=== PATIENT | female | born 1990 | race Caucasian/White ===

== ENCOUNTER 2016-09-15 18:49 | Emergency (ER) | payer OTHER ==
[~2016-09-15] VITALS: Ht 175.3 cm; Wt 162.7 kg
[~2016-09-15 18:49] MED LIST: BENADRYL25 MG PO; CHROMAGEN,1 CAPSULE PO; CLEOCIN150 MG PO; CLEOCIN300 MG PO; CLINDAMYCIN HC300 MG PO; DIFLUCAN150 MG PO; ENDOCET 5-3251 EACH PO; FLINTSTONES CO1 EAC1 PO; IBUPROFEN800 MG PO; INDOCIN25 MG PO; KEFLEX500 MG PO; LIDOCAINE20 MG/1 M5 PO; MACROBID100 MG PO; MOTRIN800 MG PO; Motrin PO; NOHOMEMEDS; OXYCODONE HCL5 MG PO; POLYTRIM EYE DR10 ML BOTH EYES; PREDNISONE20 MG PO; Percocet 5/325,Endoc PO; TYLENOL REGULA325 MG PO; TYLENOL WITH C1 EACH PO; ULTRACET1 TABLET PO; VITRON-C TABLE1 EACH PO; ZOFRAN ODT4 MG PO
[2016-09-15 19:44] LABS: HEMATOCRIT 35.8 % (36.0-46.0); MCH 28.6 PG (29.0-34.0); MCHC 32.7 G/DL (30.0-36.0); MCV 87.5 FL (83-99); MEAN PLAT.VOLUME 10.9 uM^3 (9.5-12.4); PLATELET COUNT 324 K/uL (156-360); RBC DIS.WIDTH-CV 14.4 % (11.8-14.6); RED BLOOD COUNT 4.09 M/uL (3.80-5.20); WHITE BLOOD COUNT 7.3 K/uL (4.1-10.2)
[2016-09-15 19:54] LABS: CHLORIDE 106 mEq/L (99-109); POTASSIUM 4.1 mEq/L (3.7-5.4); SODIUM 138 mEq/L (136-147)
[2016-09-15 19:56] LABS: GLUCOSE 90 mg/dL (70-99)
[2016-09-15 19:57] LABS: ANION GAP 9 MEQ/L (2-14)
[2016-09-15 19:58] LABS: TOTAL BILIRUBIN 0.2 mg/dL (0.0-1.0)
[2016-09-15 19:59] LABS: ALKALINE PHOSPHATASE 75 IU/L (3-129)
[2016-09-15 20:00] LABS: GFR ESTIMATE (CALCULATED) > 59 mL/min/
[2016-09-15 20:01] LABS: UREA NITROGEN (BUN) 14 mg/dL (9-23)
[2016-09-15 20:02] LABS: ADD MIUA? YES; BILIRUBIN NEGATIVE; BLOOD MODERATE; COLOR YELLOW ((YELLOW)); GLUCOSE (STRIP) NEGATIVE; KETONES NEGATIVE; LEUKOCYTES SMALL; NITRITE NEGATIVE; PROTEIN (STRIP) 30; SPECIFIC GRAVITY 1.039 (1.000-1.030); UROBILINOGEN 0.2 MG/DL (0.2-1.0)
[2016-09-15 20:09] LABS: QUANTITATIVE HCG 166.4 MIU/ML
[2016-09-15 20:17] LABS: BACTERIA RARE /HPF; EPITHELIAL CELLS RARE /HPF; MUCUS TRACE /LPF; RED BLOOD CELLS 20-30 /HPF (0-5); UCUL ADDED? NO
[2016-09-15 20:35] LABS: C-REACTIVE PROTEIN 8.5 MG/L (0-10)
[2016-09-15] MEDS ORDERED: MACROBID100 MG PO (21:18)
[2016-09-15 21:32] VITALS: BP 168/82
== END 2016-09-15 21:32 | disposition home or self-care (01) ==
LOC: EME 18:49
PROVIDERS: Emergency Medicine
DX: O23.40 Unspecified infection of urinary tract in pregnancy, unspecified trimester (principal); Z3A.00 Weeks of gestation of pregnancy not specified; Z88.1 Allergy status to other antibiotic agents; Z88.6 Allergy status to analgesic agent; Z88.0 Allergy status to penicillin; Z87.891 Personal history of nicotine dependence
CPT/HCPCS: 80053; 81003; 84702; 85027; 86140; 99281; 99284

== ENCOUNTER 2016-09-23 19:41 | Emergency (ER) | payer OTHER ==
[~2016-09-23] VITALS: Ht 175.3 cm; Wt 163.2 kg
[2016-09-23 21:13] LABS: HEMATOCRIT 34.3 % (36.0-46.0); MCH 28.7 PG (29.0-34.0); MCHC 32.7 G/DL (30.0-36.0); MCV 87.9 FL (83-99); MEAN PLAT.VOLUME 11.2 uM^3 (9.5-12.4); PLATELET COUNT 325 K/uL (156-360); RBC DIS.WIDTH-CV 15.1 % (11.8-14.6); RBC DIS.WIDTH-SD 47.9 % (39-53); WHITE BLOOD COUNT 9.4 K/uL (4.1-10.2)
[2016-09-23 21:19] LABS: CHLORIDE 106 mEq/L (99-109); POTASSIUM 3.9 mEq/L (3.7-5.4); SODIUM 138 mEq/L (136-147)
[2016-09-23 21:22] LABS: GLUCOSE 106 mg/dL (70-99)
[2016-09-23 21:22] LABS: ADD MIUA? YES; BILIRUBIN NEGATIVE; BLOOD NEGATIVE; COLOR YELLOW ((YELLOW)); GLUCOSE (STRIP) NEGATIVE; KETONES NEGATIVE; LEUKOCYTES NEGATIVE; NITRITE NEGATIVE; PROTEIN (STRIP) 30; SPECIFIC GRAVITY 1.026 (1.000-1.030); UROBILINOGEN 0.2 MG/DL (0.2-1.0)
[2016-09-23 21:23] LABS: ANION GAP 8 MEQ/L (2-14)
[2016-09-23 21:24] LABS: TOTAL BILIRUBIN 0.2 mg/dL (0.0-1.0)
[2016-09-23 21:25] LABS: ALKALINE PHOSPHATASE 60 IU/L (3-129); GFR ESTIMATE (CALCULATED) > 59 mL/min/
[2016-09-23 21:26] LABS: UREA NITROGEN (BUN) 9 mg/dL (9-23)
[2016-09-23 21:36] LABS: QUANTITATIVE HCG 4294.8 MIU/ML
[2016-09-23 21:42] LABS: BACTERIA RARE /HPF; EPITHELIAL CELLS 1+ /HPF; MUCUS TRACE /LPF; RED BLOOD CELLS 0-5 /HPF (0-5); UCUL ADDED? NO; WHITE BLOOD CELLS 0-5 /HPF (0-5)
[2016-09-23 23:47] LABS: C-REACTIVE PROTEIN 6.3 MG/L (0-10)
[2016-09-24 00:35] VITALS: BP 159/98
== END 2016-09-24 00:35 | disposition home or self-care (01) ==
LOC: EME 19:41
DX: O26.891 Other specified pregnancy related conditions, first trimester (principal); R10.31 Right lower quadrant pain; Z3A.01 Less than 8 weeks gestation of pregnancy; Z88.1 Allergy status to other antibiotic agents; Z88.0 Allergy status to penicillin; Z88.6 Allergy status to analgesic agent; Z87.891 Personal history of nicotine dependence
CPT/HCPCS: 76705; 76801; 80053; 81003; 84702; 85027; 86140; 99281; 99284

== ENCOUNTER 2016-09-26 12:56 | Emergency (ER) | payer OTHER ==
[~2016-09-26] VITALS: Ht 175.3 cm; Wt 160.0 kg
[2016-09-26 13:59] LABS: HEMATOCRIT 33.6 % (36.0-46.0); MCH 28.9 PG (29.0-34.0); MCV 87.5 FL (83-99); MEAN PLAT.VOLUME 10.7 uM^3 (9.5-12.4); PLATELET COUNT 312 K/uL (156-360); RBC DIS.WIDTH-CV 15.3 % (11.8-14.6); RBC DIS.WIDTH-SD 48.4 % (39-53); RED BLOOD COUNT 3.84 M/uL (3.80-5.20); WHITE BLOOD COUNT 8.9 K/uL (4.1-10.2)
[2016-09-26 14:04] LABS: ADD MIUA? YES; BILIRUBIN NEGATIVE; BLOOD SMALL; COLOR YELLOW ((YELLOW)); GLUCOSE (STRIP) NEGATIVE; KETONES 5; LEUKOCYTES TRACE; NITRITE NEGATIVE; PROTEIN (STRIP) NEGATIVE; SPECIFIC GRAVITY 1.017 (1.000-1.030); UROBILINOGEN 0.2 MG/DL (0.2-1.0)
[2016-09-26 14:09] LABS: CHLORIDE 107 mEq/L (99-109); POTASSIUM 4.6 mEq/L (3.7-5.4); SODIUM 137 mEq/L (136-147)
[2016-09-26 14:11] LABS: GLUCOSE 101 mg/dL (70-99)
[2016-09-26 14:13] LABS: ANION GAP 5 MEQ/L (2-14)
[2016-09-26 14:15] LABS: ALKALINE PHOSPHATASE 59 IU/L (3-129); GFR ESTIMATE (CALCULATED) > 59 mL/min/
[2016-09-26 14:16] LABS: UREA NITROGEN (BUN) 7 mg/dL (9-23)
[2016-09-26 14:18] LABS: LIPASE 9 U/L (1.0-51.0)
[2016-09-26 14:21] LABS: TOTAL BILIRUBIN 0.4 mg/dL (0.0-1.0)
[2016-09-26 14:24] LABS: QUANTITATIVE HCG 8837.4 MIU/ML
[2016-09-26 14:33] LABS: BACTERIA RARE /HPF; EPITHELIAL CELLS 2+ /HPF; MUCUS TRACE /LPF; RED BLOOD CELLS 0-5 /HPF (0-5); WHITE BLOOD CELLS 0-5 /HPF (0-5)
[2016-09-26] MEDS ORDERED: PROCARDIA XL30 MG PO (15:13)
[2016-09-26] MEDS ORDERED: PRILOSEC20 MG PO (15:13)
[2016-09-26] MEDS ORDERED: ZOFRAN ODT4 MG PO (15:17)
[2016-09-26 15:42] VITALS: BP 142/119
== END 2016-09-26 15:47 | disposition home or self-care (01) ==
LOC: EME 12:56
PROVIDERS: Nurse Practitioner Family
DX: O26.891 Other specified pregnancy related conditions, first trimester (principal); O11.1 Pre-existing hypertension with pre-eclampsia, first trimester; R10.9 Unspecified abdominal pain; R11.2 Nausea with vomiting, unspecified; Z3A.01 Less than 8 weeks gestation of pregnancy; Z87.891 Personal history of nicotine dependence
CPT/HCPCS: 80053; 81003; 83690; 84702; 85027; 99281; 99284

== ENCOUNTER 2016-12-08 17:12 | Emergency (ER) | payer OTHER ==
[~2016-12-08] VITALS: Ht 175.3 cm; Wt 159.0 kg
[~2016-12-08 17:12] MED LIST changes: +PRILOSEC20 MG PO; +PROCARDIA XL30 MG PO
[2016-12-08 17:34] LABS: HEMATOCRIT 33.5 % (36.0-46.0); MCH 29.4 PG (29.0-34.0); MCHC 33.1 G/DL (30.0-36.0); MCV 88.9 FL (83-99); MEAN PLAT.VOLUME 11.3 uM^3 (9.5-12.4); PLATELET COUNT 272 K/uL (156-360); RBC DIS.WIDTH-SD 45.2 % (39-53); RED BLOOD COUNT 3.77 M/uL (3.80-5.20); WHITE BLOOD COUNT 6.4 K/uL (4.1-10.2)
[2016-12-08 17:58] LABS: QUANTITATIVE HCG 11840.8 MIU/ML
[2016-12-08 18:16] LABS: ADD MIUA? YES; BILIRUBIN NEGATIVE; BLOOD SMALL; COLOR YELLOW ((YELLOW)); GLUCOSE (STRIP) NEGATIVE; KETONES NEGATIVE; LEUKOCYTES NEGATIVE; NITRITE NEGATIVE; PROTEIN (STRIP) NEGATIVE; UROBILINOGEN 0.2 MG/DL (0.2-1.0)
[2016-12-08 18:29] LABS: BACTERIA RARE /HPF; EPITHELIAL CELLS RARE /HPF; MUCUS TRACE /LPF; UCUL ADDED? NO; WHITE BLOOD CELLS 0-5 /HPF (0-5)
[2016-12-08 18:38] LABS: CHLORIDE 107 mEq/L (99-109); POTASSIUM 4.3 mEq/L (3.7-5.4); SODIUM 138 mEq/L (136-147)
[2016-12-08 18:40] LABS: GLUCOSE 91 mg/dL (70-99)
[2016-12-08 18:41] LABS: ANION GAP 8 MEQ/L (2-14)
[2016-12-08 18:42] LABS: TOTAL BILIRUBIN 0.1 mg/dL (0.0-1.0)
[2016-12-08 18:44] LABS: ALKALINE PHOSPHATASE 64 IU/L (3-129); GFR ESTIMATE (CALCULATED) > 59 mL/min/
[2016-12-08 18:45] LABS: UREA NITROGEN (BUN) 8 mg/dL (9-23)
[2016-12-08 19:15] VITALS: BP 120/74
== END 2016-12-08 19:16 | disposition home or self-care (01) ==
LOC: EME 17:12
DX: O20.9 Hemorrhage in early pregnancy, unspecified (principal); Z3A.16 16 weeks gestation of pregnancy; Z87.891 Personal history of nicotine dependence
CPT/HCPCS: 76805; 80053; 81003; 84702; 85027; 99281; 99284

== ENCOUNTER 2017-05-06 01:00 | Outpatient (CLI) | payer OTHER ==
[2017-05-06] VITALS (7 sets, daily range): BP systolic 125–147; BP diastolic 67–78
[~2017-05-06] VITALS: Ht 175.3 cm; Wt 147.8 kg
[2017-05-06] MEDS ORDERED: PRENATA CHEWAB1 EACH PO (02:10)
[2017-05-06 02:18] LABS: BASOPHIL (%) 0.1 % (0-1); EOSINOPHIL (%) 1.1 % (0-5); EOSINOPHIL COUNT 0.1 K/uL (0-0.3); HEMATOCRIT 31.2 % (36.0-46.0); HEMOGLOBIN 10.5 G/DL (11.9-15.5); IMMATURE GRANULOCYTE (%) 0.4 % (0.0-0.7); LYMPHOCYTE (%) 18.1 % (15-42); LYMPHOCYTE COUNT 1.8 K/uL (1.0-2.8); MCH 30.1 PG (29.0-34.0); MCHC 33.7 G/DL (30.0-36.0); MCV 89.4 FL (83-99); MONOCYTE (%) 10.5 % (3-12); NEUTROPHIL (%) 69.8 % (45-76); NEUTROPHIL COUNT 6.9 K/uL (1.8-6.4); PLATELET COUNT 322 K/uL (156-360); RBC DIS.WIDTH-CV 14.3 % (11.8-14.6); RBC DIS.WIDTH-SD 46.2 % (39-53); RED BLOOD COUNT 3.49 M/uL (3.80-5.20); WHITE BLOOD COUNT 9.9 K/uL (4.1-10.2)
[2017-05-06 02:29] LABS: ALBUMIN 3.3 g/dL (3.2-4.8); CHLORIDE 106 mEq/L (99-109); POTASSIUM 4.1 mEq/L (3.7-5.4); SODIUM 138 mEq/L (136-147)
[2017-05-06 02:31] LABS: GLUCOSE 128 mg/dL (70-99); TOTAL PROTEIN 6.7 g/dL (6.4-8.3)
[2017-05-06 02:33] LABS: TOTAL BILIRUBIN 0.1 mg/dL (0.0-1.0)
[2017-05-06 02:35] LABS: ALKALINE PHOSPHATASE 93 IU/L (3-129); CREATININE 0.6 mg/dL (0.6-1.3); GFR ESTIMATE (CALCULATED) > 59 mL/min/
[2017-05-06 02:36] LABS: UREA NITROGEN (BUN) 11 mg/dL (9-23)
[2017-05-06 02:37] LABS: AST (GOT) 9 IU/L (2-34)
[2017-05-06 02:38] LABS: ALT (GPT) 10 IU/L (3-49)
[2017-05-06 04:10] LABS: AMPHETAMINE NEGATIVE (500 ng/mL); BARBITURATES NEGATIVE (200 ng/mL); BENZODIAZEPINES NEGATIVE (150 ng/mL); BUPRENORPHINE NEGATIVE (10 ng/mL); COCAINE NEGATIVE (150 ng/mL); METHADONE NEGATIVE (200 ng/mL); METHAMPHETAMINE NEGATIVE (500 ng/mL); OPIATES (MORPHINE) NEGATIVE (100 ng/mL); OXYCODONE NEGATIVE (100 ng/mL); PHENCYCLIDINE NEGATIVE (25 ng/mL); PROPOXYPHENE NEGATIVE (300 ng/mL); THC CANNABINOIDS NEGATIVE (50 ng/mL); TRICYCLIC ANTIDEPRESSANTS NEGATIVE (300 ng/mL)
[2017-05-06 04:16] LABS: UR CREATININE CONCENTRATION 225.4 MG/DL
[2017-05-06 08:19] LABS: THYROTROPIN (TSH) 5.5 MIU/L (0.4-5.5)
[2017-05-06 11:24] LABS: HEPATITIS B SURFACE ANTIGEN Nonreactive
[2017-05-06 11:25] LABS: HIV-1/2 AB/AG COMBO Nonreactive
[2017-05-07 10:21] LABS: HEMOGLOBIN A1c (GLYCOHEMOGLOB) 5.8 % (Below 5.7)
[2017-05-07 11:01] LABS: TREPONEMA ANTIBODY NEGATIVE (NEGATIVE)
== END 2017-05-06 10:55 | disposition home or self-care (01) ==
LOC: LDRP-OP 01:00 → 2WEST 01:01 → LDRP-OP 06-19 13:22
PROVIDERS: Advanced Practice Midwife; Obstetrics & Gynecology Obstetrics
DX: O26.893 Other specified pregnancy related conditions, third trimester (principal); R10.9 Unspecified abdominal pain; O99.343 Other mental disorders complicating pregnancy, third trimester; F90.9 Attention-deficit hyperactivity disorder, unspecified type; F43.10 Post-traumatic stress disorder, unspecified; F31.9 Bipolar disorder, unspecified; O99.283 Endocrine, nutritional and metabolic diseases complicating pregnancy, third trimester; E03.9 Hypothyroidism, unspecified; Z87.891 Personal history of nicotine dependence; Z3A.39 39 weeks gestation of pregnancy; O34.219 Maternal care for unspecified type scar from previous cesarean delivery; O09.33 Supervision of pregnancy with insufficient antenatal care, third trimester; Z88.0 Allergy status to penicillin; Z88.5 Allergy status to narcotic agent; Z91.410 Personal history of adult physical and sexual abuse
CPT/HCPCS: 59025; 76805; 76818; 80053; 82570; 82948; 83036; 84156; 84439; 84443; 85025; 86376; 86762; 86780; 87081; 87086; 87340; 87389; G0378

== ENCOUNTER 2017-05-15 07:05 | Inpatient (IN) | payer OTHER ==
[2017-05-15] VITALS (10 sets, daily range): BP systolic 122–181; BP diastolic 67–95
[~2017-05-15] VITALS: Ht 175.3 cm; Wt 171.4 kg
[~2017-05-15 07:05] MED LIST changes: +PRENATA CHEWAB1 EACH PO
[2017-05-15 07:47] LABS: HEMOGLOBIN 10.8 G/DL (11.9-15.5); MCH 29.8 PG (29.0-34.0); MCHC 32.7 G/DL (30.0-36.0); MCV 91.2 FL (83-99); PLATELET COUNT 342 K/uL (156-360); RBC DIS.WIDTH-CV 14.4 % (11.8-14.6); RBC DIS.WIDTH-SD 47.8 % (39-53); RED BLOOD COUNT 3.62 M/uL (3.80-5.20)
[2017-05-15 10:25] LABS: UR CREATININE CONCENTRATION 169.1 MG/DL
[2017-05-15 10:26] LABS: BENZODIAZEPINES, URINE SCREEN Negative (200 ng/mL)
[2017-05-15 10:33] LABS: ALKALINE PHOSPHATASE 92 IU/L (3-129); ALT (GPT) 14 IU/L (3-49); AST (GOT) 12 IU/L (2-34); CHLORIDE 105 MEQ/L (99-109); CREATININE 0.4 MG/DL (0.6-1.3); GFR ESTIMATE (CALCULATED) > 59 mL/min/; GLUCOSE 79 mg/dL (70-99); POTASSIUM 4.1 MEQ/L (3.7-5.4); SODIUM 138 MEQ/L (136-147); TOTAL BILIRUBIN 0.2 MG/DL (0.0-1.0); TOTAL PROTEIN 5.7 G/DL (6.4-8.3); UREA NITROGEN (BUN) 8 mg/dL (9-23)
[2017-05-16 03:28] VITALS: BP 125/79
[2017-05-16 06:19] LABS: BASOPHIL (%) 0.1 % (0-1); EOSINOPHIL (%) 1.1 % (0-5); EOSINOPHIL COUNT 0.1 K/uL (0-0.3); IMMATURE GRANULOCYTE (%) 0.5 % (0.0-0.7); LYMPHOCYTE (%) 14.7 % (15-42); LYMPHOCYTE COUNT 1.3 K/uL (1.0-2.8); MCH 29.8 PG (29.0-34.0); MCHC 32.1 G/DL (30.0-36.0); MCV 92.7 FL (83-99); MONOCYTE (%) 10.5 % (3-12); MONOCYTE COUNT 0.9 K/uL (0-0.8); NEUTROPHIL (%) 73.1 % (45-76); NEUTROPHIL COUNT 6.2 K/uL (1.8-6.4); PLATELET COUNT 250 K/uL (156-360); RBC DIS.WIDTH-CV 14.5 % (11.8-14.6); RBC DIS.WIDTH-SD 49.2 % (39-53); RED BLOOD COUNT 3.02 M/uL (3.80-5.20); WHITE BLOOD COUNT 8.5 K/uL (4.1-10.2)
[2017-05-16 10:38] VITALS: BP 128/74
[2017-05-16 14:44] VITALS: BP 129/66
[2017-05-16 19:32] VITALS: BP 133/66
[2017-05-16 23:05] VITALS: BP 136/60
[2017-05-17] VITALS (7 sets, daily range): BP systolic 132–154; BP diastolic 64–84
[2017-05-18 03:36] VITALS: BP 122/75
[2017-05-18 07:36] VITALS: BP 149/77
[2017-05-18] MEDS ORDERED: ENDOCET 5-3251 EACH PO (09:33)
[2017-05-18] MEDS ORDERED: LISINOPRIL-HCT1 EACH PO (09:33)
[2017-05-18] MEDS ORDERED: IBUPROFEN800 MG PO (09:33)
[2017-05-18] MEDS ORDERED: CHROMAGEN,1 CAPSULE PO (09:33)
== END 2017-05-18 14:10 | disposition home or self-care (01) | DRG 765 ==
LOC: 2WEST 07:05 → 2SOUTH 08:40 → 2WEST 05-18 14:10
PROVIDERS: Obstetrics & Gynecology Obstetrics
PROC: 10D00Z1 Extraction of Products of Conception, Low, Open Approach (ICD-10-PCS; principal; 2017-05-15)
DX: O34.211 Maternal care for low transverse scar from previous cesarean delivery (principal); O69.81X0 Labor and delivery complicated by cord around neck, without compression, not applicable or unspecified; O10.913 Unspecified pre-existing hypertension complicating pregnancy, third trimester; O99.02 Anemia complicating childbirth; D50.9 Iron deficiency anemia, unspecified; D62 Acute posthemorrhagic anemia; O99.214 Obesity complicating childbirth; E66.01 Morbid (severe) obesity due to excess calories; Z68.42 Body mass index [BMI] 45.0-49.9, adult; Z3A.39 39 weeks gestation of pregnancy; Z37.0 Single live birth; Z91.14 Patient's other noncompliance with medication regimen; O99.284 Endocrine, nutritional and metabolic diseases complicating childbirth; E03.9 Hypothyroidism, unspecified; O99.344 Other mental disorders complicating childbirth; F90.9 Attention-deficit hyperactivity disorder, unspecified type; F43.10 Post-traumatic stress disorder, unspecified; F31.9 Bipolar disorder, unspecified; Z91.410 Personal history of adult physical and sexual abuse
CPT/HCPCS: 80053; 80306 90; 82570; 84156; 85025; 85027; 86850; 86900; 86901; J0690; J1100; J1200; J1885; J2274; J2405; J2590; J7120